=== PATIENT | female | born 1960 | race American Indian/Alaskan Native ===

== ENCOUNTER 2017-11-05 09:37 | Emergency (ER) | payer OTHER ==
[2017-11-05 09:37] VITALS: BMI 29.4
--- NOTE | 2017-11-05 10:57 | C.PDOC ---
History Of Present Illness 57-year-old female presents to the emergency department with complaints of pain to her right knee and right ankle after a fall. Patient states she was getting out of the bath tub and slipped on a puddle of water, landing onto her right knee and twisting her right ankle. She denies head injury or LOC, chest pain, SOB, abdominal pain, sensory changes, dizziness, palpitations, or any other associated symptoms. Time Seen by Provider: 11/05/17 10:15 Chief Complaint (Nursing): Lower Extremity Problem/Injury History Per: Patient History/Exam Limitations: no limitations Current Symptoms Are (Timing): Still Present Severity: Moderate - Knee Description Of Injury: Fell - Ankle/Foot Description Of Injury: Fell Past Medical History Reviewed: Historical Data, Nursing Documentation, Vital Signs Vital Signs: Last Vital Signs Temp 99.2 F 11/05/17 12:38 Pulse 71 11/05/17 12:38 Resp 20 11/05/17 12:38 BP 174/104 H 11/05/17 12:38 Pulse Ox 99 11/05/17 14:23 - Medical History PMH: Anemia, HTN, Hypothyroidism - [facility] Procedures TETANUS TOXOID ADMINIST (10/07/14) Family History: States: No Known Family Hx - Social History Hx Tobacco Use: No Hx Alcohol Use: No Hx Substance Use: No - Immunization History Hx Tetanus Toxoid Vaccination: No Hx Influenza Vaccination: No Hx Pneumococcal Vaccination: No Review Of Systems Constitutional: Negative for: Fever, Chills Cardiovascular: Negative for: Chest Pain, Palpitations Respiratory: Negative for: Shortness of Breath Gastrointestinal: Negative for: Vomiting, Abdominal Pain Musculoskeletal: Positive for: Other (right ankle, right knee) Neurological: Negative for: Weakness, Numbness, Headache, Dizziness Physical Exam - Physical Exam Appears: Well, Non-toxic, No Acute Distress Skin: Normal Color, Warm, Dry, No Rash Head: Atraumatic, Normacephalic Eye(s): bilateral: Normal Inspection Oral Mucosa: Moist Neck: Normal, Normal ROM, No Midline Cervical Tenderness, No Paracervical Tenderness, No Step Off Deformity, Supple Cardiovascular: Rhythm Regular Respiratory: Normal Breath Sounds, No Rales, No Rhonchi, No Wheezing Extremity: Tenderness (mild diffuse TTP at right anterior knee), Capillary Refill (<2 seconds all digits ), No Deformity, Swelling (mild TTP at right lateral malleolus) Extremity: Bilateral: Normal Color And Temperature Pulses: Left Dorsalis Pedis: Normal, Right Dorsalis Pedis: Normal Neurological/Psych: Oriented x3, Normal Sensation ED Course And Treatment O2 Sat by Pulse Oximetry: 99 (RA) Pulse Ox Interpretation: Normal - Other Rad XR ANKLE X-Ray: Viewed By Me, Read By Radiologist Interpretation: Accession No. : [id number]. Patient Name / ID : REBEKAH CLAY / [id number]. Exam Date : 11/05/2017 10:56:22 ( Approved ). Study Comment : Sex / Age : F / 57Y. Creator : Yahir Carter MD. 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 Approver2 : Report Date : 11/05/2017 11:40:30. My Comment : . PROCEDURE: Right Ankle Radiographs. HISTORY: RIGHT ANKLE PAIN AFTER FALL. COMPARISON: None. FINDINGS: BONES: There is a relatively nondisplaced somewhat oblique fracture traversing the distal fibular metaphysis. . Talar dome intact. JOINTS: Ankle mortise maintained. No significant osteoarthritis. SOFT TISSUES: There is mild to moderate soft tissue swelling overlying lateral malleolus. . Minor medial soft tissue swelling. OTHER FINDINGS: None. IMPRESSION: There is a relatively nondisplaced oblique fracture traversing the distal fibular metaphysis. Overlying soft tissue swelling xr knee X-Ray: Viewed By Me, Read By Radiologist Interpretation: Accession No. : [id number]. Patient Name / ID : REBEKAH CLAY / [id number]. Exam Date : 11/05/2017 10:59:57 ( Approved ). Study Comment : Sex / Age : F / 57Y. Creator : Yahir Carter MD. 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 Approver2 : Report Date : 11/05/2017 11:38:52. My Comment : . PROCEDURE: Right Knee Radiographs. HISTORY: RIGHT KNEE PAIN. COMPARISON: None. FINDINGS: BONES: No evidence of acute displaced fracture nor dislocation. Osseous structures appear intact. JOINTS: Degenerative osteoarthritis. There is mild medial joint space narrowing with tiny marginal medial osteophyte formation. More prominent lateral marginal osteophytes are present with slight spurring tibial spines. On prominent posterior patellar osteophyte formation. JOINT EFFUSION: Small to medium-sized suprapatellar joint effusion. OTHER FINDINGS: None. IMPRESSION: No evidence of acute displaced fracture nor dislocation. 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 Small to medium- sized suprapatellar joint effusion. Progress Note: Xrays of right knee and right ankle ordered and reviewed. Xray of ankle shows nondisplaced distal fibula fx. Patient given PO tylenol as well as her HTN meds she did not take this morning. She was placed in a posterior short leg splint by geothermal field technician and checked by me, (+) NV intact. PT gave walker and instructions. Patient given rxs for pain medication, and was instructed to follow up with orthopedics or podiatry within 1 week. She understands she should return to ED if her symptoms worsen. Reassessment Condition: Improved Disposition Counseled Patient/Family Regarding: Studies Performed, Diagnosis, Need For Followup, Rx Given - Disposition Referrals: [facility] [place] [Outside] Robin Walton III, MD [Staff Provider] - Podiatry Clinic [Outside] Disposition: HOME/ ROUTINE Disposition Time: 12:50 Condition: STABLE Additional Instructions: FOLLOW UP WITH YOUR ORTHOPEDIC SURGEON WITHIN 1 WEEK RETURN TO ER IF SYMPTOMS WORSEN Prescriptions: Acetaminophen with Codeine [Tylenol with Codeine #3 Tablet] 1 each PO Q6 PRN # 12 tablet PRN Reason: pain Instructions: Fibula Fracture (DC) Forms: [employer] (Faroese) Print Language: BELIZEAN - POA Present On Arrival: Falls Or Trauma - Clinical Impression Clinical Impression: Fracture of distal fibula, Right knee sprain - Scribe Statement The provider has reviewed the documentation as recorded by the Scribe (Calli Yang) All medical record entries made by the Scribe were at my direction and personally dictated by me. I have reviewed the chart and agree that the record accurately reflects my personal performance of the history, physical exam, medical decision making, and the department course for this patient. I have also personally directed, reviewed, and agree with the discharge instructions and disposition.
[2017-11-05 11:23] VITALS: RESP 20
--- NOTE | 2017-11-05 11:40 | RAD ---
PROCEDURE: Right Knee Radiographs. HISTORY: RIGHT KNEE PAIN COMPARISON: None. FINDINGS: BONES: No evidence of acute displaced fracture nor dislocation. Osseous structures appear intact. JOINTS: Degenerative osteoarthritis. There is mild medial joint space narrowing with tiny marginal medial osteophyte formation. More prominent lateral marginal osteophytes are present with slight spurring tibial spines. On prominent posterior patellar osteophyte formation. JOINT EFFUSION: Small to medium-sized suprapatellar joint effusion OTHER FINDINGS: None. IMPRESSION: No evidence of acute displaced fracture nor dislocation. 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 Small to medium-sized suprapatellar joint effusion.
--- NOTE | 2017-11-05 11:42 | RAD ---
PROCEDURE: Right Ankle Radiographs. HISTORY: RIGHT ANKLE PAIN AFTER FALL COMPARISON: None FINDINGS: BONES: There is a relatively nondisplaced somewhat oblique fracture traversing the distal fibular metaphysis. . Talar dome intact JOINTS: Ankle mortise maintained. No significant osteoarthritis. SOFT TISSUES: There is mild to moderate soft tissue swelling overlying lateral malleolus. . Minor medial soft tissue swelling OTHER FINDINGS: None. IMPRESSION: There is a relatively nondisplaced oblique fracture traversing the distal fibular metaphysis. Overlying soft tissue swelling
[2017-11-05 12:40] VITALS: BP 174/104; PULSE 71; TEMP 99.2
[2017-11-05 13:49] VITALS: O2SAT 99
== END 2017-11-05 13:07 | disposition home or self-care (01) ==
LOC: C.ER 09:37
DX: S82.831A Other fracture of upper and lower end of right fibula, initial encounter for closed fracture (principal); S83.91XA Sprain of unspecified site of right knee, initial encounter; W18.2XXA Fall in (into) shower or empty bathtub, initial encounter
CPT/HCPCS: 29515; 73562; 73610; 97116; 97161; 99284; G8978; G8979; G8980

== ENCOUNTER 2018-10-19 19:19 | Emergency (ER) | payer OTHER ==
[2018-10-19 19:20] VITALS: BMI 31.1
[2018-10-19 19:39] VITALS: TEMP 97.9
--- NOTE | 2018-10-19 20:01 | C.PDOC ---
History Of Present Illness Patient is a 58yo female who presents to the ED with complaint of 1 week of bilateral ankle pain and swelling (L>R). Patient denies any known injury but states she did break and have surgery performed to the right ankle many years ago. States she recently moved and has been walking up and down the stairs more than usual and has been walking more at work. She also states she has been eating much more salt than she should be with her history of HTN. States symptoms are worsened with movement. States that swelling completely resolves with elevation and icing the ankles. States there is no swelling in the morning and ankle swelling is worse at night. Patient denies any chest pain, SOB, difficulty breathing, rash, numbness/tingling, back pain, or abdominal pain. No recent travel, immobilizations, surgery, DVT hx, or cancer hx. She is a nonsmoker. No other complaints at this time. Time Seen by Provider: 10/19/18 19:52 Chief Complaint (Nursing): Lower Extremity Problem/Injury Past Medical History Reviewed: Nursing Documentation Vital Signs: Last Vital Signs Temp 97.9 F 10/19/18 19:35 Pulse 84 10/19/18 19:35 Resp 18 10/19/18 19:35 BP 169/103 H 10/19/18 19:35 Pulse Ox 100 10/19/18 19:35 Primary Care Provider: Alin Alejandro - Medical History PMH: Anemia, HTN, Hypothyroidism Denies: Chronic Kidney Disease - [facility] Procedures TETANUS TOXOID ADMINIST (10/07/14) Family History: States: Unknown Family Hx - Social History Hx Tobacco Use: No Hx Alcohol Use: Yes Hx Substance Use: No - Immunization History Hx Tetanus Toxoid Vaccination: No Hx Influenza Vaccination: No Hx Pneumococcal Vaccination: No Review Of Systems Except As Marked, All Systems Reviewed And Found Negative. Constitutional: Negative for: Weakness, Weight loss Cardiovascular: Negative for: Orthopnea, Light Headedness Respiratory: Negative for: Pleuritic Pain Musculoskeletal: Negative for: Back Pain Skin: Negative for: Lesions Physical Exam - Physical Exam Appears: Well, Non-toxic Skin: Normal Color, Warm, Dry Head: Normacephalic Eye(s): bilateral: Normal Inspection, EOMI Nose: Normal Oral Mucosa: Moist Tongue: Normal Appearing Neck: Normal, Normal ROM Chest: Symmetrical Cardiovascular: Rhythm Regular, Rhythm Irregular Respiratory: Normal Breath Sounds Gastrointestinal/Abdominal: No Tenderness Back: No Vertebral Tenderness, No Decreased ROM Extremity: No Pedal Edema, Other (BLE: distal neurovascular function intact. 2+ pedal pulses. well healed surgical scar noted to the right lateral ankle. bilateral ankles are nontender with very mild swelling. no warmth or erythema. FROM of the BLE. negative reyna's sign. no calf tenderness. no abrasions, laceration or wounds.) Pulses: Left Dorsalis Pedis: Normal, Right Dorsalis Pedis: Normal Neurological/Psych: Oriented x3, Normal Speech ED Course And Treatment O2 Sat by Pulse Oximetry: 100 - Other Rad Bilateral ankle xray X-Ray: Interpreted by Me, Viewed By Me Interpretation: No fracture or dislocation, orthopedic hardware noted to the right ankle. Medical Decision Making Medical Decision Making: --BLE ankle xrays ordered. Wells Criteria - no active cancer - no immobilization - no calf swelling and swelling is bilateral - no superficial veins present - legs not entirely swollen - no pitting edema - no hx of DVT - no paralysis 10/19/182036 Xrays negative for fracture. 58yo female with hx of HTN complains of bilateral ankle pain and swelling for the past 2 weeks. States has been walking more than usual and eating more salt than usual. Explains that ankle swelling worsens as the day progresses and improves with elevation, ice and come the morning. No SOB or pedal edema/pitting edema. No calf tenderness or concerns for DVT. Symptoms bilateral and there is no erythema, warmth fevers or chills to suggest bilateral ankle infectious process or gout. Will apple abbe wraps to ankle and advised to continue elevating and icing the joint. Will limit salt intake. Advised to follow-up with PMD and will return with any worsening symptoms. States she does have an upcoming appointment with her orthopedist on 10/26/18 and has upcoming appointment with her PMD. Disposition Counseled Patient/Family Regarding: Studies Performed, Diagnosis, Need For Followup - Disposition Referrals: Alin Alejandro [Staff Provider] - Disposition: HOME/ ROUTINE Disposition Time: 20:49 Condition: GOOD Additional Instructions: Elevate and ice your ankles. Wear wraps to help reduce swelling. Limits your salt intake. Follow-up with your PMD and prosthetics lab technician. Return if symptoms worsen or persist. Instructions: Swollen Joints Forms: General Discharge Instructions, [employer] (Romanian) Print Language: GEORGIAN - Clinical Impression Clinical Impression: Joint swelling - PA / WAFER CUTTER / Resident Statement MD/DO has reviewed & agrees with the documentation as recorded.
[2018-10-19 21:02] VITALS: BP 142/86; PULSE 78; RESP 16; O2SAT 98
--- NOTE | 2018-10-20 09:25 | RAD ---
Date of service: 10/19/2018 PROCEDURE: ankle pain swelling HISTORY: ankle pain swelling COMPARISON: Right ankle radiographs performed 11/05/17 TECHNIQUE: Three views. FINDINGS: Right ankle: Metallic plate and screw fixation distal fibular fracture. Lucent fracture line persists. Soft tissue swelling. No dislocation. Left ankle: No acute displaced fracture, dislocation, or significant joint effusion. Marked soft tissue swelling. IMPRESSION: Right ankle: Metallic plate and screw fixation distal fibular fracture. Lucent fracture line persists. Soft tissue swelling. No dislocation. Left ankle: No acute displaced fracture, dislocation, or significant joint effusion. Marked soft tissue swelling.
== END 2018-10-19 21:01 | disposition home or self-care (01) ==
LOC: C.ER 19:19
DX: M79.89 Other specified soft tissue disorders (principal)